=== PATIENT | male | born 1950 | race Caucasian/White ===

== ENCOUNTER 2023-10-11 11:13 | Emergency (ER) | payer BC, MEDICAID ==
[~2023-10-11] VITALS: Ht 170.2 cm; Wt 82.0 kg
[~2023-10-11 11:13] MED LIST: ASPI-1160 PO; BENA10TA74 PO; CLOP75TA15 PO; LEVO500T2 PO; LIP40 PO; METF-414 PO; PANT40TA51 PO
[2023-10-11 11:18] VITALS: O2SAT 98
[2023-10-11] MEDS ORDERED: TETANUS, DIPHTHERIA, PERTUSSIS VAC/PF 0.5ML (>10YR OLD) IM ONE (12:45)
[2023-10-11] MEDS ORDERED: T3 PO (15:09)
[2023-10-11 15:45] VITALS: BP 125/63; PULSE 72; RESP 18; TEMP 98.2
== END 2023-10-11 15:51 | disposition home or self-care (01) ==
LOC: ER 11:13
DX: S01.01XA Laceration without foreign body of scalp, initial encounter (principal); R51.9 Headache, unspecified; E11.9 Type 2 diabetes mellitus without complications; E78.00 Pure hypercholesterolemia, unspecified; Z88.0 Allergy status to penicillin; Z98.890 Other specified postprocedural states; Y04.0XXA Assault by unarmed brawl or fight, initial encounter; Y93.89 Activity, other specified; Y92.89 Other specified places as the place of occurrence of the external cause; Y99.8 Other external cause status
CPT/HCPCS: 12002; 29125; 73110; 73130; 90471; 90715; 99285